=== PATIENT | female | born 1960 | race American Indian/Alaskan Native ===

== ENCOUNTER 2016-10-26 09:41 | Outpatient (CLI) | payer OTHER ==
--- NOTE | 2016-10-27 12:06 | Vascular Lab Report ---
RENAL ARTERY DUPLEX EXAM: REASON FOR EXAM: Hypertension. NOTE: Visualization is technically limited due to body habitus and bowel gas.. COMMENTS ON THE AORTA: The aorta is patent. Normal flow velocities are observed. No aneurysmal dilatation is noted. Mild atherosclerotic change is identified. The celiac artery is not visualized. The superior mesenteric artery is patent with normal flow velocity. COMMENTS ON THE RIGHT KIDNEY: The kidney measures 12 centimeters in greatest dimension. No obvious parenchymal abnormalities are noted. The renal artery is patent. Maximum systolic velocity is 132 cm/sec. This finding is consistent with less than 60% diameter reduction. COMMENTS ON THE LEFT KIDNEY: The kidney measures 11.4 centimeters in greatest dimension. No obvious parenchymal abnormalities are noted. The renal artery is patent. Maximum systolic velocity is 111 cm/sec. This finding is consistent with less than 60% diameter reduction. Left kidney cyst noted measuring 5.3 x 6.8 x 6.5 cm. Clinical correlation recommended IMPRESSION: RIGHT KIDNEY: Less than 60% diameter reduction in the renal artery. LEFT KIDNEY: Less than 60% diameter reduction in the renal artery.
== END 2016-10-26 09:42 | disposition home or self-care (01) ==
LOC: VAS 09:41 → US 09:41 → VAS 09:42
PROVIDERS: ATTEND Internal Medicine
DX: I10 Essential (primary) hypertension (principal); I70.1 Atherosclerosis of renal artery
CPT/HCPCS: 93975